=== PATIENT | female | born 1955 | race Caucasian/White ===

== ENCOUNTER 2016-12-18 12:54 | Day surgery (SDC) | payer MEDICAID ==
[2016-12-18 13:35] VITALS: BP 148/84; PULSE 67; RESP 14; TEMP 97.6; O2SAT 96
[2016-12-18 14:10] VITALS: BP 154/90; PULSE 54; RESP 18; TEMP 97.7; O2SAT 97
[2016-12-18 14:25] VITALS: BP 158/89; PULSE 56; RESP 18; TEMP 97.7; O2SAT 97
--- NOTE | 2016-12-18 14:32 | RADRPT ---
EXAM DATE/TIME: 12/18/2016 13:16 [facility] COMPARISON: No previous studies available for comparison. INDICATIONS : Right thyroid nodule. MEDICAL HISTORY : Renal failure. Hypertension. Hypercholesterolemia. Thyroid nodules. GERD. SURGICAL HISTORY : Tonsillectomy. Hysterectomy. Right knee surgery. ENCOUNTER: Initial ACUITY: 2 months PAIN SCORE: 0/10 LOCATION: Right thyroid. ORGAN: Right thyroid lobe SPECIMENS: Three fine needle aspirate(s) submitted for pathologic evaluation. DEVICE: 22 gauge needle Post procedure scanning reveals no hematoma or other complication. The possibility does exist that the tissue obtained will be non-diagnostic. If the sample is non-haley gnostic a repeat biopsy or surgical biopsy may need to be performed. TECHNIQUE: 1. Ultrasound guidance for needle biopsy. 2. Needle biopsy. The risks, benefits, and alternatives to ultrasound guided needle biopsy were explained to the patien t in detail including the risk of bleeding and infection. Written and verbal informed consent was ob tained. With the patient on the ultrasound table, images were obtained. Overlying skin was prepped and drape d in the usual sterile fashion and Lidocaine was utilized as a local anesthetic. A needle was advanced into the identified target and the number of specimens as above obtained and stubbs bmitted for pathologic evaluation. The patient tolerated the procedure well and left the ultrasound suite in stable condition. CONCLUSION: Uncomplicated ultrasound guided needle biopsy. Steve Luna MD FACR on December 18, 2016 at 14:30 Board Certified Radiologist. This report was verified electronically.
== END 2016-12-18 14:30 | disposition home health service (06) ==
LOC: HRAD 12:54 → HRIP 12:55 → HRAD 14:30
DX: E04.1 Nontoxic single thyroid nodule (principal); I10 Essential (primary) hypertension; E78.00 Pure hypercholesterolemia, unspecified; K21.9 Gastro-esophageal reflux disease without esophagitis; N19 Unspecified kidney failure; M35.8 Other specified systemic involvement of connective tissue
CPT/HCPCS: 10022; 76942; 88172; 88173

== ENCOUNTER 2017-06-14 21:10 | Observation (INO) | payer MEDICAID ==
[~2017-06-14 21:10] MED LIST: ATOR20TA15 PO; FURO1TAB62 PO; HYDR-3583 PO; PLAV75TA29 PO; POTA-163 PO; PRED5TAB PO; VALS1TAB63 PO
[2017-06-14 21:20] VITALS: BP 141/71; PULSE 72; RESP 17; TEMP 97.9; O2SAT 95
[2017-06-14] MEDS: VALSARTAN 40 MG TAB PO SCH (22:33)
[2017-06-14 22:55] VITALS: BP 124/64; PULSE 76; RESP 16; TEMP 97.8; O2SAT 99
[2017-06-14] MEDS: NITROGLYCERIN 2% OINT 1 GM PACKET TOPICAL SCH (23:00)
[2017-06-14] MEDS ORDERED: ACETAMINOPHEN 500 MG CPLT PO PRN (23:00)
[2017-06-14] MEDS: ATORVASTATIN 20 MG TAB PO SCH (23:00)
[2017-06-14] MEDS ORDERED: SODIUM CHLORIDE 0.9% FLUSH 10 ML FLUSH IV FLUSH PRN ×2 (23:00)
[2017-06-14] MEDS ORDERED: ONDANSETRON HCL 4 MG/2 ML VIAL IV PUSH PRN (23:00)
[2017-06-14 23:51] LABS: TROPONIN I LESS THAN 0.02 NG/ML (0.02-0.05)
[2017-06-14] MEDS: ACETAMINOPHEN/HYDROcodone 325 MG/10 MG TAB PO PRN (23:53)
[2017-06-15] VITALS (14 sets, daily range): BP systolic 118–142; BP diastolic 64–96; PULSE 60–72; RESP 16–18; TEMP 97.1–98.9; O2SAT 96–99
[2017-06-15 02:06] LABS: TROPONIN I LESS THAN 0.02 NG/ML (0.02-0.05)
[2017-06-15] MEDS: NITROGLYCERIN 2% OINT 1 GM PACKET TOPICAL SCH ×2 (05:00→12:53)
[2017-06-15] MEDS: ACETAMINOPHEN/HYDROcodone 325 MG/10 MG TAB PO PRN ×2 (08:33→16:57)
--- NOTE | 2017-06-15 08:42 | HHI.HP ---
HPI Primary Care Physician Non-Staff Chief Complaint Chest pain History of Present Illness This is a 61-year-old female that presents to ED in [place] to evaluated for chest pain and headache. Subsequently transferred via [facility] to chest pain center to further evaluate. States that 2 days ago she developed headache and points a simple region. It was a dull discomfort. She thought that maybe her blood pressure was elevated and checked it. States her BP was 181/115. She was due to take her blood pressure medicine so she then took it. Her blood pressure cannot little better headache felt a little better. She is able falsely. Then yesterday she awoke with a central chest pressure with associated shortness breath, nausea, diaphoresis. Headache was also present. The discomfort did not radiate. Found nothing to worsen or improve. She went to the ED. Was given nitroglycerin. States no change at the first nitroglycerin but the second nitroglycerin did resolve the symptoms. States the discomfort recurred while in ambulance coming to the chest pain center. Was given nitroglycerin in the chest pain center and she states it resolved her symptoms. She woke up this morning and is free of chest discomfort. No headache at this time. Denies numbness tingling and weakness in extremities. States that she has rheumatoid arthritis and chronically has pain in her joints and in her back is not sure if her discomfort in her chest is related to her rheumatoid arthritis. States that she had a myocardial infarction in 1996 and at that time underwent a cardiac catheterization revealing no blockages. 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 States last stress test was 2-3 years ago and that was okay. Her last echo was 2-3 years ago and she states that she was told that was okay as well. Denies recent illness. Denies fevers or chills. Denies recent travel. Review of Systems General: Patient denies fevers, chills recent, and recent travel HEENT: Patient denies sore throat, difficulty swallowing. Cardiovascular: Has the chest discomfort as mentioned above. Denies sensation of heart beating rapidly or irregularly. No syncope. She was diaphoretic. Respiratory: She was short of breath. Denies inspirational chest discomfort. Denies coughing wheezing or hemoptysis. GI: Denies nausea. Patient denies vomiting, diarrhea, abdominal pain, bloody stools. Musculoskeletal: Chronic back pain. Chronic arthralgias. Patient denies joint edema. Denies calf pain or edema. Neurovascular: Complained of headache and pointed to the occipital region. Patient denies numbness, tingling, weakness in extremities. Endocrine: Denies polyuria and polydipsia. Hematologic: Denies easy bruising. Skin: Denies rash or itching. Past Family Social History Allergies: Coded Allergies: No Known Allergies (Verified Allergy, Unknown, 06/14/17) Past Medical History Hypertension, hyperlipidemia, stated history of a myocardial infarction with normal cardiac catheterization in 1996, chronic kidney disease, TIAs 2 last being about 3 years ago, and pericarditis 3 years ago, rheumatoid arthritis. She also is being evaluated for thyroid mass. Past Surgical History Thyroid biopsy however she does not know the results. Reported Medications Reported Meds & Active Scripts Active Reported Valsartan 40 Mg Tab 20 Mg PO BID Prednisone 5 Mg Tab 5 Mg PO DAILY Hydrocodone-Acetaminophen 10-325 mg Tab 1 Tab PO Q6H PRN Plavix (Clopidogrel Bisulfate) 75 Mg Tab 75 Mg PO DAILY Atorvastatin (Atorvastatin Calcium) 20 Mg Tab 20 Mg PO HS Lasix (Furosemide) 20 Mg Tab 20 Mg PO DAILY Potassium Chloride ER (Potassium Chloride) 20 Meq Tab 20 Meq PO DAILY Active Ordered Medications Current Medications Medications (Trade) Dose Ordered Sig/Otoniel Route Start Time Stop Time Status Last Admin (Morphine Inj) 2 mg Q2H PRN IV PUSH 06/14/17 22:45 (Lipitor) 20 mg HS PO 06/14/17 22:31 06/14/17 23:00 (Plavix) 75 mg DAILY PO 06/15/17 09:00 (Lasix) 20 mg DAILY PO 06/15/17 09:00 (KCl) 20 meq DAILY PO 06/15/17 09:00 (Diovan) 20 mg BID PO 06/14/17 22:33 (Fertile 10-325 Mg) 1 tab Q6H PRN PO 06/14/17 22:45 06/15/17 08:33 (NS Flush) 2 ml UNSCH PRN IV FLUSH 06/14/17 23:00 (NS Flush) 2 ml UNSCH PRN IV FLUSH 06/14/17 23:00 (Tylenol) 500 mg Q4H PRN PO 06/14/17 23:00 (Zofran Inj) 4 mg Q6H PRN IV PUSH 06/14/17 23:00 (Nitroglycerin 2% Oint) 1 inch Q6H TOPICAL 06/14/17 23:00 06/14/17 23:00 (Aspirin) 325 mg DAILY PO 06/15/17 09:00 Family History States that her father at age 62 of a myocardial infarction. She states that he had had a CVA just prior to that. Social History Lifetime nonsmoker. Denies alcohol or illicit drugs. Lives with her . They she is disabled secondary to her rheumatoid arthritis. Physical Exam Vital Signs Vital Signs Date Time Temp Pulse Resp B/P (MAP) Pulse Ox O2 Delivery O2 Flow Rate FiO2 06/15/17 07:16 97.1 64 18 118/68 (85) 98 06/15/17 06:17 21 06/15/17 03:39 97.9 60 16 128/64 (85) 96 06/15/17 03:35 64 06/15/17 01:05 18 06/15/17 00:43 63 06/14/17 22:55 97.8 76 16 124/64 (84) 99 06/14/17 21:20 97.9 72 17 141/71 (94) 95 Physical Exam GENERAL: This is a well-nourished, well-developed patient, in no apparent distress. Patient speaks in clear complete sentences. Patient is pleasant. HEENT: Head is atraumatic and normocephalic. Neck is supple without lymphadenopathy and trachea is midline. No JVD or carotid bruits. CARDIOVASCULAR: Regular rate and rhythm without murmurs, gallops, or rubs. RESPIRATORY: Clear to auscultation. Breath sounds equal bilaterally. No wheezes , rales, or rhonchi. Chest wall is tender reproducing the discomfort she had yesterday. No use of accessory muscles. GASTROINTESTINAL: Abdomen is nontender, nondistended. Abdomen soft. No obvious pulsatile mass or bruit. No CVA tenderness. Strong femoral pulses bilaterally. Normal bowel sounds in all quadrants. MUSCULOSKELETAL: Patient is moving upper and lower extremities freely. No calf tenderness or edema, no Homans sign. Strong pulses in upper and lower extremities. NEUROLOGICAL: Patient is alert and oriented. Cranial nerves 2-12 are grossly intact. No focal deficits and speech is clear. SKIN: No rash and turgor is normal. Laboratory Laboratory Tests Test 06/14/17 22:54 06/15/17 01:30 Total Creatine Kinase 49 49 Troponin I LESS THAN 0.02 LESS THAN 0.02 Imaging Chest x-ray read by radiologist as cardiomegaly and scoliosis. CT brain read by radiologist as no acute disease. Course EKGs have sinus rhythm with nonspecific inferior anterior T-wave changes. No significant ST segment depressions or elevations. Caprini VTE Risk Assessment Caprini VTE Risk Assessment: No/Low Risk (score <= 1) Caprini Risk Assessment Model Point Value = 1 Point Value = 2 Point Value = 3 Point Value = 5 Age 41-60 Minor surgery BMI > 25 kg/m2 Swollen legs Varicose veins or History of unexplained or recurrent spontaneous Oral contraceptives or hormone replacement Sepsis (< 1 month) Serious lung disease, including pneumonia (< 1 month) Abnormal pulmonary function Acute myocardial infarction Congestive heart failure (< 1 month) History of inflammatory bowel disease Medical patient at bed rest Age 61-74 Arthroscopic surgery Major open surgery (> 45 min) Laparoscopic surgery (> 45 min) Malignancy Confined to bed (> 72 hours) Immobilizing plaster cast Central venous access Age >= 75 History of VTE Family history of VTE Factor V Leiden Prothrombin [id number] Lupus anticoagulant Anticardiolipin antibodies Elevated serum homocysteine Heparin-induced thrombocytopenia Other congenital or acquired thrombophilia Stroke (< 1 month) Elective arthroplasty Hip, pelvis, or leg fracture Acute spinal cord injury (< 1 month) Prophylaxis Regimen Total Risk Factor Score Risk Level Prophylaxis Regimen 0-1 Low Early ambulation 2 Moderate Order ONE of the following: *Sequential Compression Device (SCD) *Heparin 5000 units SQ BID 3-4 Higher Order ONE of the following medications: *Heparin 5000 units SQ TID *Enoxaparin/Lovenox 40 mg SQ daily (WT < 150 kg, CrCl > 30 mL/min) *Enoxaparin/Lovenox 30 mg SQ daily (WT < 150 kg, CrCl > 10-29 mL/min) *Enoxaparin/Lovenox 30 mg SQ BID (WT < 150 kg, CrCl > 30 mL/min) AND/OR *Sequential Compression Device (SCD) 5 or more Highest Order ONE of the following medications: *Heparin 5000 units SQ TID (Preferred with Epidurals) *Enoxaparin/Lovenox 40 mg SQ daily (WT < 150 kg, CrCl > 30 mL/min) *Enoxaparin/Lovenox 30 mg SQ daily (WT < 150 kg, CrCl > 10-29 mL/min) *Enoxaparin/Lovenox 30 mg SQ BID (WT < 150 kg, CrCl > 30 mL/min) AND *Sequential Compression Device (SCD) Assessment and Plan Assessment and Plan * Chest pain: Patient has had serial cardiac enzymes and EKGs for ruling out purposes. She will be seen by Dr. Martinez of cardiology and the chest pain center and will undergo a Lexiscan myocardial perfusion stress test. She'll be discharged home if her stress test is nonischemic with instructions to follow- up with PCP and cardiology. Return to ED for interval issues. * Hypertension: Resume medication. * Hyperlipidemia: Continue current medication. * Rheumatoid arthritis: Continue current medication. Follow-up with her roll scale man. * Chronic kidney disease: Continue her follow-up with her PCP and nephrology. Patient is stable at this time. She is agreeable to this plan. Erwin Boyce Jun 15, 2017 08:42
[2017-06-15] MEDS: VALSARTAN 40 MG TAB PO SCH ×2 (09:00→20:33)
[2017-06-15] MEDS ORDERED: predniSONE 5 MG TAB PO SCH (09:00)
[2017-06-15] MEDS ORDERED: REGADENOSON INJ 0.4 MG/5 ML SYR ONE (11:06)
--- NOTE | 2017-06-15 11:34 | EKG ---
Date Performed: 06/14/2017 Time Performed: 23:02:28 PTAGE: 61 years EKG: Sinus rhythm MARKED LEFT AXIS DEVIATION LOW QRS VOLTAGE IN PRECORDIAL LEADS PATTERN CONSISTENT WITH PULMONARY DIS EASE MINIMAL VOLTAGE CRITERIA FOR LVH, CONSIDER NORMAL VARIANT ABNORMAL ECG NO PREVIOUS TRACING DOCTOR: Osmel Martinez Interpretating Date/Time 06/15/2017 11:33:03
--- NOTE | 2017-06-15 11:36 | EKG ---
Date Performed: 06/15/2017 Time Performed: 01:33:47 PTAGE: 61 years EKG: SINUS BRADYCARDIA BORDERLINE LEFT AXIS DEVIATION LOW QRS VOLTAGE IN PRECORDIAL LEADS MINIMA L VOLTAGE CRITERIA FOR LVH, CONSIDER NORMAL VARIANT BORDERLINE ECG PREVIOUS TRACING : 06/14/2017 23.02 DOCTOR: Osmel Martinez Interpretating Date/Time 06/15/2017 11:36:17
[2017-06-15] MEDS: ASPIRIN 325 MG TAB PO SCH (12:49)
[2017-06-15] MEDS: CLOPIDOGREL 75 MG TAB PO SCH (12:49)
[2017-06-15] MEDS: POTASSIUM CHLORIDE 20 MEQ CONTROLLED RELEASE TAB PO SCH (12:49)
[2017-06-15] MEDS: FUROSEMIDE 20 MG TAB PO SCH (12:50)
[2017-06-15] MEDS: MORPHINE SULFATE 2 MG/ML INJ IV PUSH PRN (12:53)
--- NOTE | 2017-06-15 13:04 | RADRPT ---
EXAM DATE/TIME: 06/15/2017 10:46 [facility] COMPARISON: No previous studies available for comparison. INDICATIONS : Chest pain. Angina. DOSE: 27.2 mCi Tc99m Myoview at stress. 8.5 mCi Tc99m Myoview at rest. 0.4 mg Lexiscan STRESS SYMPTOMS: Dyspnea, chest pressure, nausea and headache. EJECTION FRACTION: 68% MEDICAL HISTORY : Hypertension. Renal insufficiency, chronic. Rheumatoid arthritis. TIA. SURGICAL HISTORY : Hysterectomy. ENCOUNTER: Initial ACUITY: 1 day PAIN SCALE: 0/10 LOCATION: Substernal chest TECHNIQUE: The patient underwent pharmacologic stress with infusion of prescribed dose. Continuous ECG tracing was monitored during stress. Gated SPECT imaging was performed after stress and conventional SPECT i maging was performed at rest. The examination was performed on a SPECT/CT scanner, both attenuation and non-corrected datasets were reviewed. FINDINGS: DISTRIBUTION: The maximum perfused segment at stress is in the lateral wall. PERFUSION STUDY: Mild decreased perfusion in the apical lateral wall during stress. GATED STUDY: There is intact wall motion and thickening without hypokinetic or dyskinetic segments. CONCLUSION: 1. Findings suggesting mild ischemia in the apical lateral wall. 2. Intact wall motion with EF of 68%. RISK CATEGORY: Low (<1% Annual Mortality Rate) Brian Zambrano MD on June 15, 2017 at 12:51 Board Certified Radiologist. This report was verified electronically.
[2017-06-15] MEDS ORDERED: SODIUM CHLOR 0.9% 1000 ML INJ 1,000 ML IV SCH (13:45)
[2017-06-15] MEDS ORDERED: amLODIPine BESYLATE 5 MG TAB PO SCH (14:00)
[2017-06-15] MEDS ORDERED: PILL SPLITTER OTHER PRN (14:15)
--- NOTE | 2017-06-15 15:04 | TR ---
Date Performed: 06/15/2017 Time Performed: 11:11:07 DOCTOR: Osmel Martinez DRUG LIST: CLINICAL HISTORY: REASON FOR TEST: CHEST PAIN REASON FOR ENDING: OBSERVATION: CONCLUSION: Lexiscan stress test was performed under standard four minute protocol. Radionuclid e was injected one minute prior to ending the test. No electrocardiographic abormalities were present to suggest ischemia. Nuclear imaging and interpretation are pending. COMMENTS:
--- NOTE | 2017-06-15 16:43 | MB ---
cc: CHERIE TYLER M.D. DATE OF CONSULTATION: 06/15/2017. REASON FOR CONSULTATION: Chest pain, abnormal nuclear stress test. HISTORY OF PRESENT ILLNESS: The patient is a 61-year-old white female with a history of hypertension, hyperlipidemia, rheumatoid arthritis, transient ischemic attacks, the last one in 2013, who presented to the hospital mainly with complaints of headache. Two evenings ago she developed a posterior headache, somewhat unusual for her, under conditions of emotional stress as she has been trying to take care of her demented mother. At some point in the last couple of evenings, she also developed a substernal chest pressure without associated shortness of breath, nausea or diaphoresis. The chest discomfort over the day yesterday did increase in intensity but has since improved. The chest discomfort has been constant for the past 48 hours. There is no definite relationship of the chest discomfort to exertion or emotional stress. She denies pleurisy, lightheadedness, syncope, near-syncope, palpitations, paroxysmal nocturnal dyspnea. Over the last two months she has had mild waxing and waning pedal edema. A nuclear stress test was obtained showing apical lateral ischemia. PAST MEDICAL HISTORY: 1. Hypertension 2. Normal cardiac catheterization 1996. 3. Transient ischemic attacks x2, the last one in 2013. 4. Hyperlipidemia. 5. Rheumatoid arthritis. CARDIAC MEDICATIONS AT HOME: 1. Amlodipine, unknown dose. 2. Valsartan 20 milligrams twice a day. 3. Clopidogrel 75 milligrams daily. 4. Atorvastatin 20 milligrams at bedtime. 5. Furosemide 20 milligrams daily. 6. Potassium chloride 20 milliequivalents daily. ALLERGIES: NO KNOWN DRUG ALLERGIES. FAMILY HISTORY: The patient's father from a myocardial infarction at age 62. SOCIAL HISTORY: The patient denies any history of alcohol or tobacco abuse. REVIEW OF SYSTEMS: Review of systems as in the history of present illness otherwise negative or noncontributory. She also denies abdominal pain, melena, dyspepsia, bright red blood per rectum. She continues to have a moderate headache. PHYSICAL EXAMINATION: VITAL SIGNS: On physical examination, her blood pressure 135/96 with a pulse of 61, respirations 18. GENERAL: She is a well-developed, well-nourished white female in no acute distress. HEAD, EYES, EARS, NOSE, THROAT: On HEENT examination, jugular venous pressure is normal. Carotid pulses are 2+ bilaterally and without bruits. CHEST: Examination of the chest reveals unlabored respiratory effort with clear lung joya. CARDIAC: On cardiac examination she has a regular rhythm and rate with a grade 1/6 systolic ejection murmur heard at the right upper sternal border. No gallop is audible. ABDOMEN: On abdominal examination, she has a soft, obese, nontender abdomen. Bowel sounds are present. There is no definite hepatosplenomegaly. EXTREMITIES: Examination of extremities reveals no clubbing or cyanosis. There may be trivial pretibial edema bilaterally. LABORATORY DATA: Laboratory data includes normal CBC, potassium 3.7, BUN 18, creatinine 1.20, negative cardiac enzymes. EKGS: EKG from 06/14/2017 at 06:10 p.m. shows sinus rhythm, nonspecific anterior T-wave abnormality. RADIOLOGICAL STUDIES:: Chest x-ray shows no acute disease. IMPRESSION: Extremely atypical chest pain in this 61-year-old white female with a history of hypertension, transient ischemic attacks, hyperlipidemia, rheumatoid arthritis. Despite constant chest discomfort for at least the last 48 hours, cardiac enzymes are negative for myocardial infarction. EKGs show nonspecific T-wave changes. Her nuclear stress test images have been reviewed. The abnormality seen appears to be quite small and mild. She does have risk factors for coronary disease including family history, hypertension, hyperlipidemia. RECOMMENDATIONS: 1. In light of the very atypical nature of her chest discomfort symptoms in the last two days, would recommend medical therapy. 2. Recommend adding low-dose beta-omar such as carvedilol 3.125 milligrams twice a day to the amlodipine and Valsartan. 3. Increase amlodipine to achieve better blood pressure control. 4. Daily baby aspirin. 5. She can be discharged home in the morning from a cardiac standpoint. MD MONSTER Marquez/WILL /4:18 PM /4:32 PM LISANDRA
[2017-06-15] MEDS: ATORVASTATIN 20 MG TAB PO SCH (20:32)
[2017-06-15] MEDS: CARVEDILOL 3.125 MG TAB PO SCH (20:33)
[2017-06-16 00:02] VITALS: PULSE 68
[2017-06-16] MEDS: MORPHINE SULFATE 2 MG/ML INJ IV PUSH PRN (00:32)
[2017-06-16 03:28] VITALS: BP 122/61; PULSE 60; RESP 15; TEMP 98.7; O2SAT 98
[2017-06-16] MEDS: ACETAMINOPHEN/HYDROcodone 325 MG/10 MG TAB PO PRN ×2 (06:32→12:54)
[2017-06-16 08:00] VITALS: PULSE 66
[2017-06-16 08:28] VITALS: BP 120/62; PULSE 70; RESP 20; TEMP 97.9; O2SAT 96
[2017-06-16] MEDS: VALSARTAN 40 MG TAB PO SCH (08:47)
[2017-06-16] MEDS: POTASSIUM CHLORIDE 20 MEQ CONTROLLED RELEASE TAB PO SCH (08:47)
[2017-06-16] MEDS: CLOPIDOGREL 75 MG TAB PO SCH (08:47)
[2017-06-16] MEDS: FUROSEMIDE 20 MG TAB PO SCH (08:47)
[2017-06-16] MEDS: ASPIRIN 325 MG TAB PO SCH (08:47)
[2017-06-16] MEDS: CARVEDILOL 3.125 MG TAB PO SCH (08:48)
[2017-06-16] MEDS ORDERED: amLODIPine BESYLATE 5 MG TAB PO SCH (09:00)
[2017-06-16 09:22] VITALS: O2SAT 96
[2017-06-16 09:57] LABS: BACTERIA, URINE MANY /hpf; BILIRUBIN, URINE NEG (NEG); BLOOD, URINE SMALL (NEG); GLUCOSE,URINE NEG (NEG); HYALINE CAST, URINE 1 /lpf (RARE); KETONE, URINE NEG (NEG); MUCUS URINE FEW /lpf (OCC); NITRITE,URINE POS (NEG); SQUAMOUS EPITHELIAL CELL URINE 25 /hpf (0-5); URINE COLOR YELLOW (YELLW/STRAW); URINE LEUKOCYTE ESTERASE LARGE (NEG)
[2017-06-16] MEDS ORDERED: AMLO5 PO (11:06)
[2017-06-16] MEDS ORDERED: CARV3.125 PO (11:06)
[2017-06-16] MEDS ORDERED: ASPI81TA23 PO (11:06)
--- NOTE | 2017-06-16 11:06 | HHI.DCPOC ---
Discharge Care Plan Diagnosis: (1) GERD (gastroesophageal reflux disease) (2) Atypical chest pain (3) UTI (urinary tract infection) Goals to Promote Your Health * To prevent worsening of your condition and complications * To maintain your health at the optimal level Directions to Meet Your Goals Take your medications as prescribed Follow your dietary instruction Follow activity as directed Keep your appointments as scheduled Take your immunizations and boosters as scheduled If your symptoms worsen call your PCP, if no PCP go to Urgent Care Center or Emergency Room Smoking is Dangerous to Your Health. Avoid second hand smoke Call the 24-hour hour crisis hotline for domestic abuse at Linda Morris MD Jun 16, 2017 11:06
[2017-06-16] MEDS ORDERED: MACR100C2 PO (11:10)
[2017-06-16] MEDS ORDERED: ZANT150T2 PO (11:10)
--- NOTE | 2017-06-16 11:11 | HHI.DS ---
Discharge Summary Admission Date Jun 14, 2017 at 21:20 Discharge Date: Jun 16, 2017 Admitting Diagnosis Atypical chest pain (1) Atypical chest pain ICD Code: R07.89 - Other chest pain Diagnosis: Principal (2) GERD (gastroesophageal reflux disease) ICD Code: K21.9 - Gastro-esophageal reflux disease without esophagitis Diagnosis: Principal (3) UTI (urinary tract infection) ICD Code: N39.0 - Urinary tract infection, site not specified Diagnosis: Principal Procedures Nuclear stress test Brief History - From Admission This is a 61-year-old female that presents to ED in [place] to evaluated for chest pain and headache. Subsequently transferred via [facility] to chest pain center to further evaluate. States that 2 days ago she developed headache and points a simple region. It was a dull discomfort. She thought that maybe her blood pressure was elevated and checked it. States her BP was 181/115. She was due to take her blood pressure medicine so she then took it. Her blood pressure cannot little better headache felt a little better. She is able falsely. Then yesterday she awoke with a central chest pressure with associated shortness breath, nausea, diaphoresis. Headache was also present. The discomfort did not radiate. Found nothing to worsen or improve. She went to the ED. Was given nitroglycerin. States no change at the first nitroglycerin but the second nitroglycerin did resolve the symptoms. See assessment and plan for further information. Significant Findings Laboratory Tests Test 06/14/17 22:54 06/15/17 01:30 06/16/17 09:23 Troponin I LESS THAN 0.02 NG/ML LESS THAN 0.02 NG/ML Urine Turbidity HAZY (CLEAR) Urine Occult Blood SMALL (NEG) Urine Nitrite POS (NEG) Urine Leukocyte Esterase LARGE (NEG) Urine WBC 16 /hpf (0-5) Urine Bacteria MANY /hpf (NONE) Urine Mucus FEW /lpf (OCC) Imaging Last Impressions Myocardial Perfusion Scan Nuc Med 06/15/17 0000 Signed Impressions: Service Date/Time: Thursday, June 15, 2017 10:46 - CONCLUSION: 1. Findings suggesting mild ischemia in the apical lateral wall. 2. Intact wall motion with EF of 68%%. RISK CATEGORY: Low (<1%% Annual Mortality Rate) Brian Zambrano MD PE at Discharge GENERAL: NAD SKIN: Warm and dry. HEAD: Normocephalic. EYES: No scleral icterus. No injection or drainage. NECK: Supple, trachea midline. No JVD or lymphadenopathy. CARDIOVASCULAR: Regular rate and rhythm without murmurs, gallops, or rubs. RESPIRATORY: Breath sounds equal bilaterally. No accessory muscle use. GASTROINTESTINAL: Abdomen soft, non-tender, nondistended. MUSCULOSKELETAL: No cyanosis, or edema. BACK: Nontender without obvious deformity. No CVA tenderness. Pt update on day of discharge Follow-up for chest pain Patient stated that she did have an episode chest pain last night in which she laid down and was at a certain position. She stated that she reposition herself in the chest pain resolved. Patient also complained of epigastric pain. Deny nausea or vomiting. She also complained about dysuria and polyuria. This happened a few days ago. She stated that she has no history of UTIs. Patient stated that she has a that she's been with for very long time. Hospital Course This is a 61-year-old female who was admitted secondary to atypical chest pain in the chest pain center. Patient had cardiac enzymes and a nuclear stress test. Nuclear stress test showed suggesting mild ischemia in the apical lateral wall. Patient was low risk and chest pain was atypical but frozen foods manager was consulted in which he stated very unlikely cardiac in nature. Based on patient history is seems like her chest pain was more due to acid reflux or gastritis. Patient also complained about urinary symptoms later on and a UA was done which does suggest a UTI. She was in treated empirically with Macrobid and Zantac. Per frozen foods manager recommended carvedilol and baby aspirin along with her home regimen. All questions were answered before discharge and patient felt comfortable going home. Pt Condition on Discharge: Good Discharge Disposition: Discharge Home Discharge Time: <= 30 minutes Discharge Instructions DIET: Follow Instructions for: Heart Healthy Diet Activities you can perform: Regular-No Restrictions Follow up Referrals: Cardiology - 1 Week PCP Follow-up - 1 Week New Medications: Aspirin DR (Aspirin EC) 81 Mg Tabdr 81 MG PO DAILY for heart disease, #30 TAB 0 Refills Nitrofurantoin Monohydrate Macrocrystals (Macrobid) 100 Mg Capsule 100 MG PO BID for Infection, #20 CAP 0 Refills Ranitidine (Zantac) 150 Mg Tab 150 MG PO BID for Reduce Stomach Acid, #60 TAB 0 Refills Amlodipine (Norvasc) 5 Mg Tab 5 MG PO DAILY for hypertension, #30 TAB 0 Refills Carvedilol (Coreg) 3.125 Mg Tab 3.125 MG PO BID for heart disease, #60 TAB 0 Refills Continued Medications: Atorvastatin (Atorvastatin) 20 Mg Tab 20 MG PO HS for Cholesterol Management, #30 TAB 0 Refills Clopidogrel (Plavix) 75 Mg Tab 75 MG PO DAILY for Blood Clot Prevention, #30 TAB 0 Refills Furosemide (Lasix) 20 Mg Tab 20 MG PO DAILY, #30 TAB 0 Refills Hydrocodone-Acetaminophen (Hydrocodone-Acetaminophen) 10-325 mg Tab 1 TAB PO Q6H PRN for PAIN, TAB 0 Refills Potassium Chloride ER (Potassium Chloride ER) 20 Meq Tab 20 MEQ PO DAILY for Electrolyte Replacement, #30 TAB 0 Refills Prednisone (Prednisone) 5 Mg Tab 5 MG PO DAILY, TAB 0 Refills Valsartan (Valsartan) 40 Mg Tab 20 MG PO BID, #30 TAB 0 Refills Linda Morris MD Jun 16, 2017 11:11
== END 2017-06-16 14:24 | disposition home or self-care (01) ==
LOC: NEDDLT 21:10 → NEPFCDU 21:20
PROVIDERS: ADMIT Family Medicine; ATTEND Family Medicine
DX: R07.89 Other chest pain (principal); N39.0 Urinary tract infection, site not specified; B96.20 Unspecified Escherichia coli [E. coli] as the cause of diseases classified elsewhere; I12.9 Hypertensive chronic kidney disease with stage 1 through stage 4 chronic kidney disease, or unspecified chronic kidney disease; N18.9 Chronic kidney disease, unspecified; K21.9 Gastro-esophageal reflux disease without esophagitis; E78.5 Hyperlipidemia, unspecified; I25.2 Old myocardial infarction; M06.9 Rheumatoid arthritis, unspecified; Z86.73 Personal history of transient ischemic attack (TIA), and cerebral infarction without residual deficits; Z90.710 Acquired absence of both cervix and uterus; Z82.49 Family history of ischemic heart disease and other diseases of the circulatory system
CPT/HCPCS: 78452; 81001; 82550; 84484; 87077; 87086; 87186; 93005; 93017; 96361; 96374; 96376; A9502; G0378; J2270; J2785; J7030